=== PATIENT | female | born 1995 | race Caucasian/White ===

== ENCOUNTER 2019-02-03 00:44 | Emergency (ER) | payer OTHER ==
[2019-02-03] MEDS: KETOROLAC 30 MG INJ IM (03:01)
== END 2019-02-03 04:19 | disposition home or self-care (01) ==
LOC: FTE 00:44
DX: S93.401A Sprain of unspecified ligament of right ankle, initial encounter (principal); X50.1XXA Overexertion from prolonged static or awkward postures, initial encounter; Y92.9 Unspecified place or not applicable
CPT/HCPCS: 73610; 73610-RT; 81025; 96372; 99284-25